=== PATIENT | male | born 1990 | race Caucasian/White ===

== ENCOUNTER 2018-05-26 04:30 | Emergency (ER) | payer SELFPAY ==
[~2018-05-26] VITALS: Ht 177.8 cm; Wt 110.9 kg
[2018-05-26 06:35] VITALS: BP 135/94
== END 2018-05-26 11:09 | disposition home or self-care (01) ==
LOC: EMS 04:31
DX: S02.2XXA Fracture of nasal bones, initial encounter for closed fracture (principal); Y04.0XXA Assault by unarmed brawl or fight, initial encounter; Y93.89 Activity, other specified; Y92.511 Restaurant or cafe as the place of occurrence of the external cause; Y99.8 Other external cause status
CPT/HCPCS: 70450; 70486